=== PATIENT | male | born 2000 | race Caucasian/White ===

== ENCOUNTER 2024-03-31 12:58 | Emergency (ER) | payer OTHER, SELFPAY ==
[2024-03-31 13:05] VITALS: BP 119/81; PULSE 65; RESP 16; TEMP 36.5; O2SAT 99; BMI 24.4
--- NOTE | 2024-03-31 13:16 | XR_ITS ---
WS: [id number] XR knee LT 3V* [id number] REASON FOR EXAM: injury FINDINGS: No acute fracture. Joint spaces of the knee are intact and well preserved. No soft tissue abnormality. XR/XR knee LT 3V* [id number] IMPRESSION: No acute bone or joint abnormality.
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
[2024-03-31 14:09] VITALS: BP 121/79; PULSE 61; RESP 14; O2SAT 100
== END 2024-03-31 13:45 | disposition home or self-care (01) ==
PROVIDERS: Emergency Provider Physician Assistant; Family Provider Family Medicine
DX: S89.92XA Unspecified injury of left lower leg, initial encounter (principal); Y04.8XXA Assault by other bodily force, initial encounter
CPT/HCPCS: 73562; 99283

== ENCOUNTER 2025-02-14 14:50 | Emergency (ER) | payer OTHER, SELFPAY ==
[2025-02-14 14:55] VITALS: BP 131/60; PULSE 61; RESP 14; TEMP 36.8; O2SAT 99
[2025-02-14] MEDS: rabies vaccine 2.5 unit SDV IM (15:35)
[2025-02-14] MEDS: rabies IG 300 unit/mL SDV 1 mL 1920 UNIT IM (15:37)
--- NOTE | 2025-02-14 15:43 | ED_ITS ---
HPI - Animal Bite General: Chief Complaint: Animal Bite Stated Complaint: Dog Bit L ankle R knee Time Seen by Provider: 02/14/25 14:51 History of Present Illness: 25-year-old male presents to the emergen cy room after being bitten by a stray dog. Patient works as a [employer] when a course of his duties he was bitten lower legs bilaterally relatively superficial. Dog has not been vaccinated for rabies patient presents here for postexposure rabies vaccination. Related Data Previous Rx's ?Medication ?Instructions ?Recorded clindamycin HCl 300 mg capsule 300 mg PO TID #15 caps 02/14/25 (Cleocin HCl) Allergies Allergy/AdvReac Type Severity Reaction Status Date / Time Penicillins Allergy Unknown Verified 02/17/25 10:04 Physical Exam Extremity: OTHER: Superficial anne on the lower extremities no full-thickness lacerations or bite anne or puncture wounds. No redness or erythema Course Vital Signs: Vital signs: Vital Signs Temperature 98.2 F 02/14/25 14:55 Pulse Rate 95 02/14/25 16:02 Respiratory Rate 14 02/14/25 14:55 Blood Pressure 131/60 02/14/25 16:02 Pulse Oximetry 100 02/14/25 16:02 Oxygen Delivery Me thod Room Air 02/14/25 15:59 MDM - Animal Bite Medical Decision Making Dog bite bilateral lower extremity superficial does not need sutures. Started on Augmentin and tetanus updated right rabies immunoglobulin given as well as begin rabies vaccination series. Medical Records I reviewed the patient's medical records. All radiology interpretation(s) finalized by discharge Discharge Plan Discharge Patient Disposition: Home Clinical Impression: Dog bite, Need for post exposure prophylaxis for rabies Condition: Stable Prescriptions: New clindamycin HCl [Cleocin HCl] 300 mg capsule 300 mg PO TID Qty: 15 0RF Discharge Orders: Discharge ED (Routine); Ordered 02/14/25 Ordered By: Uziel Uriostegui Discharge Diet: Usual diet Discharge Activity: Resume usual activity Patient Instructions: Opioid Safety, Pain Management, Patient Portal & Chevy Instructions Activity Restrictions/Additional Instructions: Thank you for choosing [facility] [place] for your healthcare needs today. It is very important that you follow up as instructed or that you return to the Emergency Department should you have concerns or if your condition changes or worsens in any way. Emergency department visits are focused on emergent conditions, in some cases you may require further evaluation on an outpatient basis. You were seen in the emergency room after a dog bite. You reported that the dog vaccination status was unknown. Recommend proceeding with postexposure rabies vaccination. You were given your first shot of immunoglobulin and vaccine today. Follow the rabies vaccine schedule you are given. You are also given prophylactic antibiotics to take for 5 days. (Please note that included in your discharge packet is information concerning opioid safety and pain management. This information is given to all patients were discharged from the ER regardless of their discharge diagnosis or the medicines they usually take or are prescribed.) Print Language: Rwandan Coding Level of Care Code ED Solar Field Service Technician for Mihir Ramos
[2025-02-14 15:59] VITALS: BP 131/60; PULSE 65; O2SAT 100
[2025-02-14 16:02] VITALS: BP 131/60; PULSE 95; O2SAT 100
== END 2025-02-14 16:04 | disposition home or self-care (01) ==
PROVIDERS: Emergency Provider Family Medicine
DX: Z20.3 Contact with and (suspected) exposure to rabies (principal); Z29.14 Encounter for prophylactic rabies immune globulin; S91.052A Open bite, left ankle, initial encounter; S81.051A Open bite, right knee, initial encounter; W54.0XXA Bitten by dog, initial encounter
CPT/HCPCS: 90375; 90471; 90675; 96372; 99283